=== PATIENT | male | born 1980 | race Caucasian/White ===

== ENCOUNTER 2019-04-05 15:49 | Emergency (ER) | payer BC ==
[~2019-04-05] VITALS: Ht 175.3 cm; Wt 88.5 kg
[2019-04-05 16:21] LABS: BILIRUBIN,URINE NEGATIVE (NEGATIVE); CLARITY,URINE SL CLOUDY (CLEAR); COLOR,URINE YELLOW (YELLOW); KETONES,URINE NEGATIVE (NEGATIVE); LEUKOCYTE ESTERASE ,URINE NEGATIVE (NEGATIVE); NITRITE,URINE NEGATIVE (NEGATIVE); PROTEIN,URINE DIPSTICK NEGATIVE (NEGATIVE); URINE UROBILINOGEN 0.2 mg/dL (0.2 - 1)
[2019-04-05] MEDS ORDERED: ONDANSETRON HCL INJ 2MG/ML 2ML 2 MG/ML VIAL IV ONE (16:22)
[2019-04-05] MEDS ORDERED: SODIUM CHLORIDE 0.9% 1000ML 1,000 ML ONE (16:29)
[2019-04-05] MEDS ORDERED: MORPHINE SULFATE 5 MG/ML VIAL IV ONE (16:30)
[2019-04-05] MEDS ORDERED: SODIUM CHLORIDE 0.9% 1000ML 1,000 ML IV ONE (16:30)
[2019-04-05] MEDS ORDERED: MORPHINE SULFATE INJ 4 MG/ML INJ 1ML IV ONE (16:30)
[2019-04-05 16:33] LABS: BACTERIA,URINE FEW /HPF; RBC,URINE 21-50 /HPF (0-5)
[2019-04-05 16:35] LABS: BASOPHILS # (AUTO) 0.1 (0.0-0.1); BASOPHILS % 0.8 % (0.0-1.0); EOSINOPHILS # (AUTO) 0.1 (0.0-0.4); EOSINOPHILS % 1.2 % (0.0-6.0); HEMATOCRIT 44.3 % (38.2-49.6); HEMOGLOBIN 14.9 g/dL (14.0-18.0); LYMPHOCYTES # (AUTO) 2.2 (1.0-3.2); LYMPHOCYTES % 25.2 % (18.0-39.1); MEAN CORPUSCULAR HEMOGLOBIN 29.3 pg (28-32); MEAN CORPUSCULAR HGB CONC 33.6 g/dL (31-35); MONOCYTES % 10.7 % (4.4-11.3); NEUTROPHILS # (AUTO) 5.5 (2.1-6.9); NEUTROPHILS % 61.8 % (38.7-80.0); PLATELET COUNT 304 x10e3/uL (140-360); RED BLOOD COUNT 5.09 x10e6/uL (4.3-5.7); RED CELL DISTRIBUTION WIDTH 13.1 % (11.7-14.4)
[2019-04-05 16:55] LABS: ALANINE AMINOTRANSFERASE 19 IU/L (0-55); ALBUMIN/GLOBULIN RATIO 1.2 (0.8-2.0); ALKALINE PHOSPHATASE 60 IU/L (40-150); ANION GAP 11.9 mmol/L (8-16); BLOOD UREA NITROGEN 17 mg/dL (7-26); BUN/CREATININE RATIO 20 (6-25); CALCIUM 9.5 mg/dL (8.4-10.2); CARBON DIOXIDE 30 mmol/L (22-29); CHLORIDE 102 mmol/L (98-107); CREATININE, SERUM 0.86 mg/dL (0.72-1.25); EST GLOMERULAR FILTRATION RATE > 60 ML/MIN (60-); GLUCOSE 83 mg/dL (74-118); MAGNESIUM 1.9 MG/DL (1.3-2.1); POTASSIUM 3.9 mmol/L (3.5-5.1); SODIUM 140 mmol/L (136-145)
--- NOTE | 2019-04-05 16:55 | NUR ---
pt given urinary strainer
--- NOTE | 2019-04-05 17:06 | Diagnostic Imaging Report ---
EXAM: CT Abdomen and Pelvis WITHOUT intravenous contrast INDICATION: Left flank pain COMPARISON: None. TECHNIQUE: Abdomen and pelvis were scanned utilizing a multidetector helical scanner from the lung base to the pubic symphysis without administration of IV contrast. Coronal and sagittal reformations were obtained. IV CONTRAST: None ORAL CONTRAST: Water COMPLICATIONS: None RADIATION DOSE: Total DLP: 711.8 mGy*cm Dose modulation, iterative reconstruction, and/or weight based adjustment of the mA/kV was utilized to reduce the radiation dose to as low as reasonably achievable. FINDINGS: LOWER THORAX: Normal. HEPATOBILIARY: No focal hepatic lesions. No biliary ductal dilatation. The gallbladder appears unremarkable. SPLEEN: No splenomegaly. PANCREAS: No focal masses or ductal dilatation. ADRENALS: No adrenal nodules. KIDNEYS/URETERS: 5 mm proximal left ureteral calculus. 3 mm left upper pole renal calculus. No hydronephrosis or hydroureter. No solid renal mass lesion. Nonobstructive renal calculi at the right midpole and lower pole measure up to 3 mm. PELVIC ORGANS/BLADDER: Unremarkable. PERITONEUM / RETROPERITONEUM: No free air or fluid. LYMPH NODES: No lymphadenopathy. VESSELS: Unremarkable. GI TRACT: No abnormal bowel wall thickening. No bowel obstruction. Normal appendix. BONES AND SOFT TISSUES: No acute osseous injury. No suspicious lytic or blastic lesions. IMPRESSION: 5 mm left proximal ureteral calculus. Bilateral renal calculi measure up to 3 mm as above. No hydronephrosis or hydroureter. Signed by: Lucie Segundo MD on 04/05/2019 5:03 PM
[2019-04-05 17:12] VITALS: BP 135/96
[2019-04-05] MEDS ORDERED: FLOMAX0.4 MG PO (17:17)
[2019-04-05] MEDS ORDERED: TYLENOL WITH C1 EACH PO (17:17)
[2019-04-05] MEDS ORDERED: ZOFRAN4 MG SL (17:28)
== END 2019-04-05 17:30 | disposition home or self-care (01) ==
LOC: ER 15:49
DX: M54.5 Low back pain (principal); R10.9 Unspecified abdominal pain; R11.0 Nausea; R31.9 Hematuria, unspecified; N20.2 Calculus of kidney with calculus of ureter
CPT/HCPCS: 36415; 74176; 80053; 81001; 83735; 85025; 87086; 99284; J2270; J2405; J7030